=== PATIENT | female | born 1990 | race Caucasian/White ===

== ENCOUNTER 2017-07-28 13:25 | Emergency (ER) | payer OTHER ==
[2017-07-28 13:57] VITALS: RESP 18; TEMP 98
--- NOTE | 2017-07-28 15:24 | C.PDOC ---
History Of Present Illness 27 y/o female presents to ED with complaints of productive cough for 1 week with associated sore throat and subjective fever. Patient states she has taken Robitussin with no relief. Patient denies chest pain, sob, headache, visual changes, difficulty swallowing or any other complaints at this time. Time Seen by Provider: 07/28/17 14:01 Chief Complaint (Nursing): ENT Problem History Per: Patient History/Exam Limitations: no limitations Onset/Duration Of Symptoms: Days Current Symptoms Are (Timing): Still Present Past Medical History Reviewed: Historical Data, Nursing Documentation, Vital Signs Vital Signs: Last Vital Signs Temp 98 F 07/28/17 13:53 Pulse 85 07/28/17 15:43 Resp 18 07/28/17 15:43 BP 129/75 07/28/17 15:43 Pulse Ox 95 07/28/17 16:16 - Medical History PMH: No Chronic Diseases Surgical History: No Surg Hx - [facility] Procedures IRRIGATION OF EAR (07/27/01) Family History: States: No Known Family Hx - Social History Hx Alcohol Use: Yes Hx Substance Use: No - Immunization History Hx Tetanus Toxoid Vaccination: No Hx Influenza Vaccination: No Hx Pneumococcal Vaccination: No Review Of Systems Constitutional: Positive for: Fever ENT: Positive for: Throat Swelling Respiratory: Positive for: Cough Gastrointestinal: Negative for: Nausea, Vomiting Skin: Negative for: Rash Physical Exam - Physical Exam Appears: Non-toxic, No Acute Distress Skin: Normal Color, Warm, Dry, No Rash Head: Atraumatic, Normacephalic Eye(s): bilateral: Normal Inspection, PERRL, EOMI Ear(s): Bilateral: Normal Nose: Normal Oral Mucosa: Moist Throat: Normal, No Erythema, No Exudate, No Drooling Neck: Normal ROM, Supple Lymphatic: Normal Exam Chest: Symmetrical Cardiovascular: Rhythm Regular Respiratory: Normal Breath Sounds, No Accessory Muscle Use, No Rales, No Rhonchi , No Wheezing Gastrointestinal/Abdominal: Soft, No Tenderness, No Guarding, No Rebound Neurological/Psych: Oriented x3, Normal Speech, Normal Cognition ED Course And Treatment O2 Sat by Pulse Oximetry: 95 (RA) Disposition - Disposition Disposition: HOME/ ROUTINE Disposition Time: 15:22 Condition: STABLE Additional Instructions: Follow up with primary medical doctor in 1-3 days without fail for further evaluation. Take medications as prescribed. Return to the emergency department at any time if symptoms persist or worsen. Prescriptions: Azithromycin [Zithromax] 250 mg PO DAILY #6 tab Benzonatate [Tessalon Perle] 100 mg PO TID PRN #15 capsule PRN Reason: Cough Instructions: Acute Bronchitis (ED) Forms: [facility] (Yakut) - Clinical Impression Clinical Impression: Bronchitis - PA / DEVELOPMENT GEOLOGIST / Resident Statement MD/DO has reviewed & agrees with the documentation as recorded. - Scribe Statement The provider has reviewed the documentation as recorded by the Scottibanirudh Vela All medical record entries made by the Jarred were at my direction and personally dictated by me. I have reviewed the chart and agree that the record accurately reflects my personal performance of the history, physical exam, medical decision making, and the department course for this patient. I have also personally directed, reviewed, and agree with the discharge instructions and disposition.
[2017-07-28 15:44] VITALS: BP 129/75; PULSE 85
[2017-07-28 16:04] VITALS: O2SAT 95
== END 2017-07-28 15:45 | disposition home or self-care (01) ==
LOC: C.ER 13:25
DX: J40 Bronchitis, not specified as acute or chronic (principal)

== ENCOUNTER 2017-10-05 15:02 | Emergency (ER) | payer OTHER ==
[2017-10-05 15:13] VITALS: BP 101/67; PULSE 77; RESP 18; TEMP 98.2; O2SAT 100
--- NOTE | 2017-10-05 16:29 | C.PDOC ---
History Of Present Illness 27 year old female presents to the emergency department complaining of body aches, subjective fever, mild sore throat, and right ear pain for the past 4 days. Denies any chest pain or shortness of breath. PMD: Dr. Angelita Gray Chief Complaint (Nursing): Flu-like Symptoms History Per: Patient History/Exam Limitations: no limitations Onset/Duration Of Symptoms: Days (x4) Current Symptoms Are (Timing): Still Present Associated Symptoms: Fever, Sore Throat Past Medical History Reviewed: Historical Data, Nursing Documentation, Vital Signs Vital Signs: Last Vital Signs Temp 98.2 F 10/05/17 15:11 Pulse 77 10/05/17 15:11 Resp 18 10/05/17 15:11 BP 101/67 10/05/17 15:11 Pulse Ox 100 10/05/17 16:30 - Medical History PMH: No Chronic Diseases Other Surgeries: Ear Surgery - [facility] Procedures IRRIGATION OF EAR (07/27/01) Family History: States: Unknown Family Hx - Social History Hx Tobacco Use: No Hx Alcohol Use: Yes Hx Substance Use: No - Immunization History Hx Tetanus Toxoid Vaccination: No Hx Influenza Vaccination: No Hx Pneumococcal Vaccination: No Review Of Systems Except As Marked, All Systems Reviewed And Found Negative. Constitutional: Positive for: Fever, Other (Body Aches) ENT: Positive for: Ear Pain (Right), Throat Pain Cardiovascular: Negative for: Chest Pain Respiratory: Negative for: Shortness of Breath Gastrointestinal: Negative for: Nausea, Vomiting, Diarrhea Physical Exam - Physical Exam Appears: Non-toxic, No Acute Distress Skin: Normal Color, Warm, Dry Head: Atraumatic, Normacephalic Eye(s): bilateral: Normal Inspection, PERRL, EOMI Ear(s): Right: TM Dull Nose: Normal Throat: Normal Neck: Normal Cardiovascular: Rhythm Regular, No Murmur Respiratory: Normal Breath Sounds, No Accessory Muscle Use, No Wheezing Gastrointestinal/Abdominal: Normal Exam, No Tenderness, No Distention Back: Normal Inspection Extremity: Normal ROM Neurological/Psych: Oriented x3 ED Course And Treatment O2 Sat by Pulse Oximetry: 100 (RA) Pulse Ox Interpretation: Normal Medical Decision Making Medical Decision Making: Discharge Time: 15:38 Upon reevaluation, patient was feeling better and was discharged home. Patient is advised to follow up with a primary medical doctor if symptoms worsen. Disposition - [facility] - Disposition: HOME/ ROUTINE Disposition Time: 15:20 Condition: GOOD Additional Instructions: Thank you for letting us take care of you today. The emergency medical care you received today was directed at your acute symptoms. If you were prescribed any medication, please fill it and take as directed. It may take several days for your symptoms to resolve. Return to the Emergency Department if your symptoms worsen, do not improve, or if you have any other problems. Please contact your doctor or call one of the physicians/clinics you have been referred to that are listed on the Patient Visit Information form that is included in your discharge packet. Bring any paperwork you were given at discharge with you along with any medications you are taking to your follow up visit. Our treatment cannot replace ongoing medical care by a primary care provider (PCP) outside of the emergency department. Thank you for allowing the [facility] team to be part of your care today. Follow up with your doctor in 2-3 days for re-evaluation and further management. Prescriptions: Amoxicillin [Amoxil 500 mg Cap] 500 mg PO Q8 #21 cap Instructions: Otitis Media (ED), Viral Syndrome (ED) Forms: [facility] (Lithuanian) - Clinical Impression Clinical Impression: Viral syndrome, Otitis media - Scribe Statement The provider has reviewed the documentation as recorded by the Scribe Aleja Reddy All medical record entries made by the Scribe were at my direction and personally dictated by me. I have reviewed the chart and agree that the record accurately reflects my personal performance of the history, physical exam, medical decision making, and the department course for this patient. I have also personally directed, reviewed, and agree with the discharge instructions and disposition.
== END 2017-10-05 15:38 | disposition home or self-care (01) ==
LOC: C.ER 15:02
DX: B34.9 Viral infection, unspecified (principal); H66.91 Otitis media, unspecified, right ear

== ENCOUNTER 2017-12-24 08:34 | Emergency (ER) | payer OTHER ==
[2017-12-24 08:46] VITALS: BMI 27.6
[2017-12-24 08:52] VITALS: PULSE 64; RESP 18; TEMP 98.6; O2SAT 100
--- NOTE | 2017-12-24 09:49 | C.PDOC ---
History Of Present Illness 27-year-old female, presents to the emergency department with complaints of neck pain upon awakening this morning. pain is persistent in nature, worse on left side, and with movement toward left side. Patient reports taking Advil 400mg with mild relief. Patient denies any earache, throat pain. Time Seen by Provider: 12/24/17 09:13 Chief Complaint (Nursing): Back Pain History Per: Patient History/Exam Limitations: no limitations Onset/Duration Of Symptoms: Hrs Current Symptoms Are (Timing): Still Present Past Medical History Reviewed: Historical Data, Nursing Documentation, Vital Signs Vital Signs: Last Vital Signs Temp 98.6 F 12/24/17 08:46 Pulse 64 12/24/17 08:46 Resp 18 12/24/17 08:46 BP Pulse Ox 100 12/24/17 12:33 - [facility] Procedures IRRIGATION OF EAR (07/27/01) Family History: States: No Known Family Hx - Social History Hx Tobacco Use: No Hx Alcohol Use: Yes Hx Substance Use: No - Immunization History Hx Tetanus Toxoid Vaccination: No Hx Influenza Vaccination: Yes Hx Pneumococcal Vaccination: No Review Of Systems Constitutional: Negative for: Fever, Chills ENT: Negative for: Ear Pain, Throat Pain Gastrointestinal: Negative for: Vomiting Musculoskeletal: Positive for: Neck Pain Skin: Negative for: Rash Neurological: Negative for: Weakness, Numbness, Headache, Dizziness Physical Exam - Physical Exam Appears: Non-toxic, No Acute Distress Skin: Normal Color, Warm, Dry, No Rash Head: Atraumatic, Normacephalic Eye(s): bilateral: Normal Inspection, PERRL, EOMI Nose: Normal Oral Mucosa: Moist Lips: Normal Appearing Neck: Normal ROM, No Step Off Deformity, Other (Sternocleidomastoid Muscles tenderness) Chest: Symmetrical Cardiovascular: Rhythm Regular, No Murmur Respiratory: Normal Breath Sounds, No Accessory Muscle Use Back: Other (left trapezius) Extremity: No Deformity, No Swelling Neurological/Psych: Oriented x3, Normal Speech Gait: Steady ED Course And Treatment O2 Sat by Pulse Oximetry: 100 (RA) Pulse Ox Interpretation: Normal Medical Decision Making Medical Decision Making: Plan: Patient treated with Flexeril. On reassessment, she feels better, patient will be discharged home for outpatient f/u with clinic/PMD. All questions answered. Asked to return for any new or worsening symptoms. Disposition Counseled Patient/Family Regarding: Diagnosis, Need For Followup, Rx Given - Disposition Referrals: Angelita rGay MD [Medical Doctor] - Disposition: HOME/ ROUTINE Disposition Time: 09:47 Condition: GOOD Additional Instructions: Rx sent to [facility] Apply heat to area for 15-20 minutes at a time 2-3 times per day Take Motrin for pain every 6-8 hours as needed, with food to not upset stomach Take Flexeril for muscle pain and spasm every 6-8 hours as needed, caution can cause drowsiness Follow up with your primary medical doctor or clinic in 2-5 days for further evaluation Return to the emergency department at any time if symptoms persist or worsen. Prescriptions: Cyclobenzaprine [Cyclobenzaprine HCl] 10 mg PO TID #21 tab Ibuprofen [Motrin] 600 mg PO Q8 #30 tab Instructions: Muscle Spasms (DC) Forms: [facility] (Salvadorean), Work Excuse - POA Present On Arrival: None - Clinical Impression Clinical Impression: Muscle spasms of neck - Scribe Statement The provider has reviewed the documentation as recorded by the Scribe (Adam merritt) All medical record entries made by the Scribe were at my direction and personally dictated by me. I have reviewed the chart and agree that the record accurately reflects my personal performance of the history, physical exam, medical decision making, and the department course for this patient. I have also personally directed, reviewed, and agree with the discharge instructions and disposition.
== END 2017-12-24 10:03 | disposition home or self-care (01) ==
LOC: C.ER 08:34
DX: M62.838 Other muscle spasm (principal)

== ENCOUNTER 2018-10-30 19:10 | Emergency (ER) | payer OTHER ==
[2018-10-30 19:10] VITALS: BMI 27.6
[2018-10-30] MEDS ORDERED: Promethazine/Cod 6.25mg-10mg/5ml Syr UD PO STA (20:10)
[2018-10-30] MEDS ORDERED: Promethazine/Cod 6.25mg-10mg/5ml Syr UD ONE (20:19)
[2018-10-30] MEDS ORDERED: Albuterol-Ipratrop 3 mg / 0.5 (3 ml) UD IH STA (20:34)
[2018-10-30] MEDS ORDERED: Albuterol 0.083% Inhal Sol (2.5 mg/3 mL) UD INH STA (20:34)
[2018-10-30] MEDS ORDERED: Albuterol-Ipratrop 3 mg / 0.5 (3 ml) UD ONE (20:41)
[2018-10-30] MEDS ORDERED: Albuterol 0.083% Inhal Sol (2.5 mg/3 mL) UD ONE (20:41)
[2018-10-30] MEDS ORDERED: Dexamethasone 4 mg/1 ml IM STA (21:48)
[2018-10-30] MEDS ORDERED: Dexamethasone 4 mg/1 ml ONE (21:52)
[2018-10-30 21:56] VITALS: BP 110/73; PULSE 75; RESP 19; TEMP 98.4; O2SAT 100
--- NOTE | 2018-10-30 22:01 | C.PDOC ---
History Of Present Illness 28 year old female presents to the emergency department with reports of 2 weeks of coughing, sore throat, and body aches. Patient states that she was evaluated by her PMD 4 days ago and given prescriptions for Promethzaine, Ventolin, and Z- pack. Patient states that she has almost completed the Z-pack, but reports constant coughing, stating she coughs so much that she has post-tussive vomiting. Time Seen by Provider: 10/30/18 19:50 Chief Complaint (Nursing): Cough, Cold, Congestion History Per: Patient History/Exam Limitations: no limitations Onset/Duration Of Symptoms: Other (two weeks) Current Symptoms Are (Timing): Still Present Reports Recently: Treated By A Physician Past Medical History Reviewed: Historical Data, Nursing Documentation, Vital Signs Vital Signs: Last Vital Signs Temp 98.4 F 10/30/18 21:56 Pulse 75 10/30/18 21:56 Resp 19 10/30/18 21:56 BP 110/73 10/30/18 21:56 Pulse Ox 100 10/30/18 21:56 - Medical History PMH: No Chronic Diseases Surgical History: No Surg Hx - [facility] Procedures IRRIGATION OF EAR (07/27/01) Family History: States: No Known Family Hx - Social History Hx Tobacco Use: No Hx Alcohol Use: Yes Hx Substance Use: No - Immunization History Hx Tetanus Toxoid Vaccination: No Hx Influenza Vaccination: Yes Hx Pneumococcal Vaccination: No Review Of Systems Except As Marked, All Systems Reviewed And Found Negative. Constitutional: Negative for: Fever, Chills ENT: Positive for: Throat Pain Respiratory: Positive for: Cough Gastrointestinal: Positive for: Vomiting (post-tussive) Musculoskeletal: Positive for: Other (body aches) Physical Exam - Physical Exam Appears: Non-toxic, No Acute Distress Skin: Normal Color, Warm, Dry Head: Atraumatic, Normacephalic Eye(s): bilateral: Normal Inspection, PERRL, EOMI Ear(s): Bilateral: Normal Nose: Normal Oral Mucosa: Moist Throat: Normal, No Erythema, No Exudate Neck: Normal, Supple Chest: Symmetrical, No Tenderness Cardiovascular: Rhythm Regular, No Murmur Respiratory: Normal Breath Sounds, No Rales, No Rhonchi, No Wheezing, Other (incessant coughing) Gastrointestinal/Abdominal: Soft, No Tenderness Extremity: Normal ROM Neurological/Psych: Oriented x3, Normal Speech, Normal Cognition ED Course And Treatment O2 Sat by Pulse Oximetry: 100 (RA) Pulse Ox Interpretation: Normal - Radiology CXR: Interpreted by Me, Viewed By Me CXR Interpretation: No: No Acute Disease Progress Note: Plan: CXR. Albuterol 2,5mg INH. Promethazine/Codeine 5ml PO. POC Urine . Patient instructed to f/u with emergency response technician. Disposition - Disposition Disposition: HOME/ ROUTINE Disposition Time: 21:58 Condition: STABLE Additional Instructions: Follow up with your PMD within 1-2 days. Return to ED if feel worse. Prescriptions: predniSONE [predniSONE Tab] 2 tab PO DAILY #8 tab Promethazine HCl/Codeine [Prometh-Codein 6.25-10 mg/5 ml] 5 ml PO .Q4-6H #150 ml Instructions: Cough in Adults Forms: [facility] (Georgian) - Clinical Impression Clinical Impression: Cough - PA / DISTRICT ATTORNEY / Resident Statement MD/DO has reviewed & agrees with the documentation as recorded. - Scribe Statement The provider has reviewed the documentation as recorded by the Scribe (Harmeet Franco) All medical record entries made by the Scribe were at my direction and personally dictated by me. I have reviewed the chart and agree that the record accurately reflects my personal performance of the history, physical exam, medical decision making, and the department course for this patient. I have also personally directed, reviewed, and agree with the discharge instructions and disposition.
--- NOTE | 2018-10-31 09:59 | RAD ---
Date of service: 2018-10-30 20:21:35 HISTORY: Consistant cough COMPARISON: No prior. TECHNIQUE: Chest PA and lateral FINDINGS: LUNGS: Increased and coarsened interstitial markings; rule out sequela reactive/inflammatory airway disease or viral illness. PLEURA: No significant pleural effusion identified. No pneumothorax apparent. CARDIOVASCULAR: No aortic atherosclerotic calcification present. Normal cardiac size. No pulmonary vascular congestion. OSSEOUS STRUCTURES: No significant abnormalities. VISUALIZED UPPER ABDOMEN: Normal. OTHER FINDINGS: None. IMPRESSION: Increased and coarsened interstitial markings; rule out sequela reactive/inflammatory airway disease or viral illness.
== END 2018-10-30 22:20 | disposition home or self-care (01) ==
LOC: C.ER 19:10
DX: R05 Cough (principal)
CPT/HCPCS: 71046; 81025; 94640; 96372; 99284; J1100